=== PATIENT | male | born 1965 | race Caucasian/White ===

== ENCOUNTER 2016-07-24 09:55 | Emergency (ER) | payer OTHER ==
[~2016-07-24] VITALS: Ht 185.4 cm; Wt 79.4 kg
[~2016-07-24 09:55] MED LIST: AMBIEN5 M1 PO; DILANTIN100 M1 PO; KEPPRA750 M1 PO; NUCYNTA ER100 M1 PO; OXYCODONE-ACET1 EACH PO; PHENYTOIN SODI100 MG PO; SERTRALINE HCL25 MG PO
[2016-07-24 10:46] LABS: ABSOLUTE BASOPHIL COUNT 0 /CUMM (0.0-0.2); ABSOLUTE EOSINOPHIL COUNT 0 /CUMM (0.0-0.7); ABSOLUTE GRANULOCYTE CT 5.5 /CUMM (1.4-6.5); ABSOLUTE LYMPH COUNT 0.9 /CUMM (1.2-3.4); ABSOLUTE MONOCYTE COUNT 0.4 /CUMM (0.10-0.60); BASOPHIL % 0.1 % (0.0-2.0); EOSINOPHIL % 0.6 % (0-5); HEMATOCRIT 43.1 % (42-52); MEAN CORPUSCULAR HGB 29.5 PG (27.0-31.0); MEAN CORPUSCULAR HGB CONC 34.1 G/DL (33.0-37.0); MEAN CORPUSCULAR VOLUME 86.3 FL (80.0-94.0); MEAN PLATELET VOLUME 6.6 FL (7.4-10.4); PLATELET COUNT 294 /CUMM (130-400); RBC DISTRIBUTION WIDTH 13.5 % (11.5-14.5); RED BLOOD CELL CT 4.99 /CUMM (4.70-6.10); WHITE BLOOD CELL COUNT 6.8 /CUMM (4.8-10.8)
[2016-07-24 10:49] LABS: GRANULOCYTE % 81.4 % (42.2-75.2)
--- NOTE | 2016-07-24 11:03 | ED GENERAL ADULT ---
History of Present Illness General Chief Complaint: Seizure Stated Complaint: BIBA FOR SEIZURE Source: patient, family Exam Limitations: no limitations Vital Signs & Intake/Output Vital Signs & Intake/Output Vital Signs Date Time Temp Pulse Resp B/P Pulse O2 O2 Flow FiO2 Ox Delivery Rate 07/24 1309 97.4 82 15 119/76 96 Room Air Room Air 07/24 1004 94 07/24 0958 96.8 100 18 115/71 100 Allergies Coded Allergies: No Known Allergies (12/09/15) Reconcile Medications Levetiracetam (Keppra) 750 MG TABLET 1 TAB PO BID SEIZURES (Reported) Phenytoin (Dilantin) 100 MG CAPSULE 3 CAP PO BID SEIZURE Sertraline HCl 25 MG TABLET 1 TAB PO DAILY DEPRESSION (Reported) Triage Note: 51 YO MALE BIBA FROM HOME FOR ZUIRE. PT HX OF TBI AND SEIZURES, PT TAKES KEPPRA BUT UNSURE OF WHEN LAST TIME HE TOOK THE KEPPRA. PER EMS, PT WAS SLEEPING IN BED AND HIS GIRLFIRNED CALLED 911 WHEN PT HAS GRAND MAL SEIZURE IN THE BED. PT WAS POST ICTLE ON ARRIVAL TO HOUSE BY EMS. PT ARRIVES ALERT, CONFUSED TO TIME. PT C/O HEADACHE. NO INJURIED NOTED. SEUIZRE PERCAUTIONS IN PLACE. BS 144 PER EMS. PER EMS PTS BOTTLE OF KEPPRA A [facility] WAS EMPTY Triage Nurses Notes Reviewed? yes Onset: Abrupt Duration: hour(s): Timing: recent history HPI: 07/24/16 12 PM 51-year-old man presents to the emergency department status post seizure. He has a history of seizures. 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 He is on Keppra and Dilantin. He is unclear when he had the last dose. The onset of the symptoms was abrupt, the duration was just today, the severity was significant as his symptoms required him to come to the hospital by ambulance. He has no complaints at this time other than a mild headache. This was treated with Tylenol and resolved. Now in the emergency department at 1221. He has essentially no complaints. His Dilantin level was low. He was given an extra 200 mg. He will continue to take his medication as directed. He is also given 500 of Keppra. He will take his medication as directed and follow-up with his neurologist this week. The onset of the symptoms was abrupt, the duration was just today, the severity was significant as his symptoms required to come to the ED for care No associated fever. No head trauma. The seizure was actually in his bed. Past History Travel History Traveled to [place] past 21 day No Medical History Any Pertinent Medical History? see below for history Neurological: seizure, TBI EENT: NONE Cardiovascular: NONE Respiratory: NONE Gastrointestinal: NONE Hepatic: NONE Renal: NONE Musculoskeletal: NONE Psychiatric: NONE Endocrine: NONE Blood Disorders: NONE Cancer(s): NONE FAMILY SERVICE CASEWORKER/Reproductive: NONE Surgical History Surgical History: non-contributory Psychosocial History What is your primary language Kinyarwanda Tobacco Use: Never used Family History Hx Contributory? No Review of Systems Review of Systems Constitutional: Denies: fever. EENTM: Denies: visual changes. Respiratory: Denies: short of breath. Cardiovascular: Denies: chest pain. GI: Denies: abdominal pain. Genitourinary: Reports: no symptoms. Musculoskeletal: Reports: no symptoms. Skin: Reports: no symptoms. Neurological/Psychological: Reports: headache, tonic-clonic seizures. Hematologic/Endocrine: Denies: bruising, bleeding. Physical Exam Physical Exam General Appearance: alert, awake, anxious, mild distress Head: atraumatic, normal appearance Eyes: Bilateral: normal appearance, PERRL, EOMI. Ears, Nose, Throat: normal pharynx, normal ENT inspection Neck: normal inspection, supple, full range of motion Respiratory: normal breath sounds, chest non-tender, no respiratory distress Cardiovascular: regular rate/rhythm Peripheral Pulses: 4+ radial (R), 4+ radial (L) Gastrointestinal: non-tender Back: normal range of motion Extremities: no edema Neurologic/Psych: no motor/sensory deficits, awake, alert, oriented x 3 Skin: intact, normal color, warm/dry Core Measures ACS in differential dx? No CVA/TIA Diagnosis: No Severe Sepsis Present: No Septic Shock Present: No Progress Differential Diagnoses I considered the following diagnoses in my evaluation of the patient: [Seizure, intracranial bleed, adverse drug reaction, alcohol withdrawal] Plan of Care: Orders Procedure Date/time Status Add-on Test (ER Only) 07/24 1113 Active DILANTIN 07/24 1040 Complete URINALYSIS 07/24 1031 Complete PROLACTIN 07/24 1031 Complete COMPREHENSIVE METABOLIC PANEL 07/24 1031 Complete CBC WITHOUT DIFFERENTIAL 07/24 1031 Complete EKG 07/24 1031 Active Laboratory Tests 07/24/16 1040: Anion Gap 12, Estimated GFR > 60, BUN/Creatinine Ratio 10.0, Glucose 112 H, Calcium 9.5, Total Bilirubin 0.4, AST 25, ALT 37, Alkaline Phosphatase 47, Total Protein 7.2, Albumin 4.3, Globulin 2.9, Albumin/Globulin Ratio 1.5, Prolactin 20.1 H, CBC w Diff NO MAN DIFF REQ, RBC 4.99, MCV 86.3, MCH 29.5, RDW 13.5, MPV 6.6 L, Gran % 81.4 H, Lymphocytes % 12.6 L, Monocytes % 5.3, Eosinophils % 0.6, Basophils % 0.1, Absolute Granulocytes 5.5, Absolute Lymphocytes 0.9 L, Absolute Monocytes 0.4, Absolute Eosinophils 0, Absolute Basophils 0, PUBS MCHC 34.1, Phenytoin 4.8 L, Urinalysis LIGHT H, Urine Color YEL, Urine Clarity CLEAR, Urine pH 6.0, Ur Specific [place] >= 1.030, Urine Protein 100 H, Urine Ketones TRACE H, Urine Nitrite NEG, Urine Bilirubin NEG, Urine Urobilinogen 0.2 , Ur Leukocyte Esterase NEG, Ur Microscopic SEDIMENT EXAMINED, Urine RBC RARE, Hyaline Casts RARE H, Granular Casts RARE H, Urine Mucus FEW, Urine Hemoglobin NEG, Urine Glucose NEG Initial ED EKG: none Departure Departure Disposition: HOME OR SELF CARE Condition: Stable Clinical Impression Primary Impression: Seizure disorder Referrals: RAFAELA VICENTE MD (PCP/Family) Departure Forms: Customer Survey General Discharge Information Comments 07/24/16 12:40 PM The patient's much improved. He is awake alert oriented 3, has no complaints other than headache. He says this is common for him after his seizure. His significant other is at the bedside. She will watch him today. He was instructed not to drive and to take it easy today. He will take his medications as directed and follow-up with his neurologist this week. He was given a Percocet prior to discharge. He was also given 200 mg of Dilantin 500 Keppra prior to discharge. Critical Care Note Critical Care Note Critical Care Time: non-applicable
[2016-07-24 13:09] VITALS: BP 119/76
== END 2016-07-24 13:13 ==
LOC: ERH 09:55
PROVIDERS: Emergency Medicine
DX: G40.909 Epilepsy, unspecified, not intractable, without status epilepticus (principal)
CPT/HCPCS: 81001; 93005; 93010; J1953